=== PATIENT | male | born 1970 | race Caucasian/White ===

== ENCOUNTER 2024-12-09 18:57 | Emergency (ER) | payer OTHER ==
[~2024-12-09] VITALS: Ht 170.2 cm; Wt 83.0 kg
[2024-12-09 19:21] VITALS: TEMP 37.2; O2SAT 99
[2024-12-09 19:56] LABS: BASOPHILS % 1.5 % (0.0-2.0); EOSINOPHILS % 0.8 % (0.0-5.0); HEMATOCRIT. 46.0 % (42.0-52.0); HEMOGLOBIN. 15.5 g/dL (14.0-18.0); LYMPHOCYTES % 34.9 % (20.0-50.0); MEAN PLATELET VOLUME 8.9 fl (7.4-10.4); MONOCYTES % 6.0 % (2.0-8.0); NEUTROPHILS % 56.8 % (40.0-76.0); PLATELET 211 x1000/uL (130-400); RED BLOOD CELL COUNT 5.14 mill/uL (4.7-6.1); RED CELL DISTRIBUTION WIDTH 13.3 % (11.6-14.6)
[2024-12-09 20:10] LABS: CREATININE 1.2 mg/dL (0.6-1.3); UREA NITROGEN BLOOD 8 mg/dL (9-23)
[2024-12-09 20:17] LABS: CLARITY URINE CLEAR (CLEAR); COLOR URINE YELLOW (YELLOW); GLUCOSE URINE 3+ (NEGATIVE); KETONES URINE 2+ (NEGATIVE); LEUKOCYTE ESTERASE URINE NEGATIVE (NEGATIVE); NITRITE URINE NEGATIVE (NEGATIVE); OCCULT BLOOD URINE NEGATIVE (NEGATIVE); PH URINE 7.0 (4.5-8.0); PROTEIN URINE NEGATIVE (NEGATIVE); SPECIFIC GRAVITY URINE 1.032 (1.005-1.030); UROBILINOGEN URINE 1.0 E.U./dL (0.2-1.0)
[2024-12-09 20:34] LABS: WBC URINE 0-2 /hpf (0-2)
[2024-12-09 20:35] LABS: BACTERIA URINE TRACE; RBC URINE NONE SEEN /hpf (0-2); SQUAMOUS EPITHELIAL CELL URINE RARE /lpf (RARE/1+)
[2024-12-09] MEDS: KETOROLAC 15MG/ML VIAL IM ONE (21:45)
[2024-12-09] MEDS: LIDOCAINE 5% PATCH TOP SCH (21:45)
[2024-12-09 21:52] VITALS: BP 156/84; PULSE 75; RESP 16; O2SAT 97
[2024-12-10] MEDS ORDERED: NAPR-1176 MT (00:12)
[2024-12-10] MEDS ORDERED: LIDO-53 TP (00:12)
== END 2024-12-10 00:21 | disposition home or self-care (01) ==
LOC: ER 18:57
DX: M54.50 Low back pain, unspecified (principal); I10 Essential (primary) hypertension; E11.9 Type 2 diabetes mellitus without complications; Z98.890 Other specified postprocedural states
CPT/HCPCS: 99285; 72131; 80048; 81003; 85025; 36415; 96372; J1885